=== PATIENT | female | born 1980 | race Two or more races ===

== ENCOUNTER 2019-05-02 13:43 | Emergency (ER) | payer MEDICAID ==
[2019-05-02 15:30] LABS: ACETAMINOPHEN < 2.0 ug/mL (10.0-30.0)
--- NOTE | 2019-05-02 16:43 | EDM.PDOCBH ---
<David Chamberlain - Last Filed: 05/02/19 17:49> ED HPI GENERAL MEDICAL PROBLEM - General Chief Complaint: Behavioral/Psych Stated Complaint: MEDICAL VIA [facility] Time Seen by Provider: 05/02/19 14:03 Source of Information: Reports: Patient, EMS History Limitations: Reports: Physical Impairment - History of Present Illness INITIAL COMMENTS - FREE TEXT/NARRATIVE: I can get very little history out of this woman because of her sedation. She was brought in by EMS after a friend called 911 and reported that she took 10 Ambien tablets and some methamphetamine. We don't have information about when this was taken. There was some report that possibly it could've been a suicide attempt. We don't have any more information regarding that. The patient initially was pretty heavily sedated although she did wake up when I put a ice filled glove against her torso. The only thing that she can tell me as she took the medicine because she wanted to sleep. But she rapidly falls back to sleep so can give little history - Related Data Allergies Allergy/AdvReac Type Severity Reaction Status Date / Time No Known Allergies Allergy Verified 05/02/19 18:14 Home Meds: Home Meds ClonazePAM [KlonoPIN] 0.5 mg PO TID 05/02/19 [History] FLUoxetine HCl [Fluoxetine HCl] 60 mg PO DAILY 05/02/19 [History] Bedias Carbonate 150 mg PO DAILY 05/02/19 [History] Zolpidem Tartrate 10 mg PO BEDTIME 05/02/19 [History] Social & Family History - Recreational Drug Use Recreational Drug Type: Reports: Methamphetamine ED ROS GENERAL - Review of Systems Review Of Systems: Unable To Obtain ED EXAM, BEHAVIORAL HEALTH - Physical Exam Exam: See Below Exam Limited By: Physical Impairment General Appearance: Lethargic (This lady is moderately sedated. She will respond to voice she awakens to voice but rapidly appears to fall back to sleep. She is too sedated to give much of a history) Eye Exam: Bilateral Eye: EOMI, PERRL Ears: Normal External Exam Nose: Normal Inspection Throat/Mouth: Normal Oropharynx Head: Atraumatic Neck: Normal Inspection Respiratory/Chest: Lungs Clear Cardiovascular: Regular Rate, Rhythm GI/Abdominal: Normal Bowel Sounds, Soft Back Exam: Normal Inspection Extremities: Normal Inspection Neurological: No Motor/Sensory Deficits (She moves all extremities but otherwise is too sedated to allow a more detailed exam.). No: Alert (See above) Psychiatric: Other (She is too sedated for any psychiatric) Skin Exam: Warm ( evaluation), Dry COURSE, BEHAVIORAL HEALTH COMP - Course Vital Signs: Last Vital Signs Temp 36.8 C 05/02/19 13:54 Pulse 103 H 05/02/19 16:40 Resp 18 05/02/19 16:40 BP 116/69 05/02/19 16:40 Pulse Ox 99 05/02/19 16:40 Orders, Labs, Meds: Laboratory Tests 05/02/19 05/02/19 05/02/19 Range/Units 15:07 15:07 15:07 WBC 7.6 (4.5-11.0) K/uL RBC 4.69 (3.30-5.50) M/uL Hgb 13.1 (12.0-15.0) g/dL Hct 40.9 (36.0-48.0) % MCV 87 (80-98) fL MCH 28 (27-31) pg MCHC 32 (32-36) % Plt Count 465 H (150-400) K/uL Neut % (Auto) 67 H (36-66) % Lymph % (Auto) 21 L (24-44) % [place] % (Auto) 10 H (2-6) % Eos % (Auto) 3 (2-4) % Baso % (Auto) 1 (0-1) % Sodium 143 (140-148) mmol/L Potassium 4.1 (3.6-5.2) mmol/L Chloride 107 (100-108) mmol/L Carbon Dioxide 28 (21-32) mmol/L Anion Gap 7.8 (5.0-14.0) mmol/L BUN 11 (7-18) mg/dL Creatinine 0.8 (0.6-1.0) mg/dL Est Cr Clr Drug Dosing 93.63 mL/min Estimated GFR (MDRD) > 60 (>60) Glucose 105 (74-106) mg/dL Calcium 8.4 L (8.5-10.1) mg/dL Total Bilirubin 0.5 (0.2-1.0) mg/dL AST 9 L (15-37) U/L ALT 21 (12-78) U/L Alkaline Phosphatase 60 (46-116) U/L Total Protein 6.7 (6.4-8.2) g/dL Albumin 3.0 L (3.4-5.0) g/dL Globulin 3.7 H (2.3-3.5) g/dL Albumin/Globulin Ratio 0.8 L (1.2-2.2) Urine Opiates Screen (NEGATIVE) Ur Oxycodone Screen (NEGATIVE) Urine Methadone Screen (NEGATIVE) Ur Propoxyphene Screen (NEGATIVE) Acetaminophen < 2.0 L (10.0-30.0) ug/mL Ur Barbiturates Screen (NEGATIVE) Ur Tricyclics Screen (NEGATIVE) Ur Phencyclidine Scrn (NEGATIVE) Ur Amphetamine Screen (NEGATIVE) U Methamphetamines Scrn (NEGATIVE) Urine MDMA Screen (NEGATIVE) U Benzodiazepines Scrn (NEGATIVE) U Cocaine Metab Screen (NEGATIVE) U Marijuana (THC) Screen (NEGATIVE) Ethyl Alcohol < 3 mg/dL 05/02/19 Range/Units 17:07 WBC (4.5-11.0) K/uL RBC (3.30-5.50) M/uL Hgb (12.0-15.0) g/dL Hct (36.0-48.0) % MCV (80-98) fL MCH (27-31) pg MCHC (32-36) % Plt Count (150-400) K/uL Neut % (Auto) (36-66) % Lymph % (Auto) (24-44) % [place] % (Auto) (2-6) % Eos % (Auto) (2-4) % Baso % (Auto) (0-1) % Sodium (140-148) mmol/L Potassium (3.6-5.2) mmol/L Chloride (100-108) mmol/L Carbon Dioxide (21-32) mmol/L Anion Gap (5.0-14.0) mmol/L BUN (7-18) mg/dL Creatinine (0.6-1.0) mg/dL Est Cr Clr Drug Dosing mL/min Estimated GFR (MDRD) (>60) Glucose (74-106) mg/dL Calcium (8.5-10.1) mg/dL Total Bilirubin (0.2-1.0) mg/dL AST (15-37) U/L ALT (12-78) U/L Alkaline Phosphatase (46-116) U/L Total Protein (6.4-8.2) g/dL Albumin (3.4-5.0) g/dL Globulin (2.3-3.5) g/dL Albumin/Globulin Ratio (1.2-2.2) Urine Opiates Screen Negative (NEGATIVE) Ur Oxycodone Screen Negative (NEGATIVE) Urine Methadone Screen Negative (NEGATIVE) Ur Propoxyphene Screen Negative (NEGATIVE) Acetaminophen (10.0-30.0) ug/mL Ur Barbiturates Screen Negative (NEGATIVE) Ur Tricyclics Screen Negative (NEGATIVE) Ur Phencyclidine Scrn Negative (NEGATIVE) Ur Amphetamine Screen Presumptive positive H (NEGATIVE) U Methamphetamines Scrn Presumptive positive H (NEGATIVE) Urine MDMA Screen Presumptive positive H (NEGATIVE) U Benzodiazepines Scrn Negative (NEGATIVE) U Cocaine Metab Screen Negative (NEGATIVE) U Marijuana (THC) Screen Negative (NEGATIVE) Ethyl Alcohol mg/dL Re-Assessment/Re-Exam: This lady has been observed in the emergency department. Initially she was moderately to heavily sedated and responded only to ice on the chest. A little bit later she was sitting up on the stretcher and wanting something to eat. She was given a return of which she the [employer] quickly and then asked for another one which she also ate. I've examined her a couple of times and she is definitely more alert but then quickly falls back to sleep. She still too sedated to make any decisions about whether she might have been suicidal or not. This will have to wait until she is more alert. [id number] this patient is now awake and alert. The nurse Zahida and I question her to determine if she might be suicidal or not. At times she said she just wanted to sleep all day get away from her problems at other times she said that she may actually be suicidal. She is upset about a number of things including possibly a felony conviction sounds like she has very very little support at home and were not able to determine that she is safe to leave. She agrees to stay for a crisis evaluation. At this time I have not filled out any commitment papers. I will be turning her over to the incoming physician very shortly Departure - Departure Disposition: Home, Self-Care 01 Clinical Impression: Depression, Overdose - Discharge Information Referrals: PCP,None [Primary Care Provider] - Forms: ED Department Discharge Care Plan Goals: follow the recomendations of the crisis team , continue meds. rtc if pt is not feelingsafe at home. <Kaylan Jordan - Last Filed: 05/02/19 21:32> COURSE, BEHAVIORAL HEALTH COMP - Course Medical Clearance: 05/02/19 21:29 pt was positive for Meth. She took a overdose of ambien She is stable and doing well at this point. Evelyne came and evaluated her and felt she should get followup and continue her meds. Departure - Departure Time of Disposition: 21:31 Condition: Fair
== END 2019-05-02 21:40 | disposition home or self-care (01) ==
LOC: EEVIPCON 13:43 → JP.ED 13:43
DX: T42.6X1A Poisoning by other antiepileptic and sedative-hypnotic drugs, accidental (unintentional), initial encounter (principal); F32.9 Major depressive disorder, single episode, unspecified
CPT/HCPCS: 36415; 80053; 80305; 85025; 99284; G0480; 99283